=== PATIENT | female | born 1985 | race Caucasian/White ===

== ENCOUNTER 2019-04-01 17:32 | Emergency (ER) | payer MEDICARE, MEDICAID ==
--- NOTE | 2019-04-01 19:58 | NUR ---
PT LAYING IN GURNEY. STILL WONT ANSWER ANY QUESTIONS THAT WOULD MAYBE HELP WITH IDENTITY. AOX1
[2019-04-01 20:37] LABS: BASOPHILS # (AUTO) 0.18 x10^3/uL (0-0.1); BASOPHILS % (AUTO) 2 % (0-1); EOSINOPHILS # (AUTO) 0.16 x10^3/uL (0-0.4); EOSINOPHILS % (AUTO) 2 % (1-7); LYMPHOCYTES # (AUTO) 2.53 x10^3/uL (1-3.4); LYMPHOCYTES % (AUTO) 26 % (22-44); MD NO; MEAN CORPUSCULAR HEMOGLOBIN 28.6 pg (27.0-34.8); MEAN CORPUSCULAR HGB CONC 32.2 g/dL (32.4-35.8); MEAN CORPUSCULAR VOLUME 88.7 fL (80-100); MEAN PLATELET VOLUME 6.9 fL (7.4-10.4); MONOCYTES # (AUTO) 0.83 x10^3/uL (0.2-0.8); MONOCYTES % (AUTO) 8 % (2-9); NEUTROPHILS # (AUTO) 6.19 x10^3/uL (1.8-6.8); NEUTROPHILS % (AUTO) 63 % (42-75); PLATELET COUNT 331 x10^3/uL (130-400); RED BLOOD COUNT 4.84 x10^6/uL (3.82-5.3); RED CELL DISTRIBUTION WIDTH 13.9 % (9.6-15.2)
--- NOTE | 2019-04-01 20:40 | NUR ---
PT REFUSED TO GIVEN URINE SAMPLE OR BE CATHED
[2019-04-01 20:51] LABS: ALANINE AMINOTRANSFERASE 20 U/L (12-78); ALBUMIN 3.6 g/dL (3.4-5.0); ANION GAP 6 mmol/L (5-15); CALCIUM 8.4 mg/dL (8.5-10.1); CHLORIDE 111 mmol/L (98-107); CREATININE 0.62 mg/dL (0.55-1.02); SALICYLATE LEVEL 3.5 mg/dL (2.8-20.0)
[2019-04-01 20:55] LABS: ALKALINE PHOSPHATASE 89 U/L (45-117); BILIRUBIN,TOTAL 0.6 mg/dL (0.2-1.0); TOTAL PROTEIN 7.2 g/dL (6.4-8.2)
[2019-04-01 21:24] LABS: AMPHETAMINE SCREEN, URINE Positive (Negative); BARBITURATE SCREEN, URINE Negative (Negative); BENZODIAZEPINE SCREEN, URINE Negative (Negative); CANNABINOID SCREEN, URINE Negative (Negative); COCAINE SCREEN, URINE Negative (Negative); METHADONE SCREEN, URINE Negative (Negative); OPIATE SCREEN, URINE Negative (Negative)
--- NOTE | 2019-04-01 21:57 | NUR ---
LATE ENTRY: 1955 WHEN PT ORIGINALLY CAME IN SHE WAS AOX1. THE ONLY WORDS SHE WOULD MUMBLE WAS "DAI". THEREFORE, I HAVE BEEN CALLING HER DAI. I ASKED HER TO WRITE DOWN HER LAST NAME AND SHE WROTE "POOP". LATER SHE STARTED TALKING IN SENTENCES SHE TOLD ME I COULD MAKE UP HER BIRTHDAY DATE. IN THE DECON SHOWER I WAS PULLING CIGARETTE BUTTS OUT OF HER HAIR. WHEN SHE FIRST CAME IN SHE WAS WEARING ABOUT 10 JACKETS AND 10 PAIRS OF PANTS. WHEN WE PULLED OFF HER UNDERWEAR THEY WERE SATURATED IN URINE AND FECES.
[2019-04-01] MEDS ORDERED: AMOXICILLIN/CLAV 875-125MG TABLET PO ONE (22:00)
--- NOTE | 2019-04-01 22:02 | NUR ---
PT BELONGINGS HAVE BEEN PUT IN SECURITY LOCKER. 2 LARGE BLACK GARBAGE BAGS 3 WHITE PT BELONGING BAGS. ALL BAGS ARE LABELED WITH HER STICKER
--- NOTE | 2019-04-01 22:04 | NUR ---
REPORT GIVEN TO CLARISSA GARCIA
[2019-04-01] MEDS ORDERED: AMOXICILLIN/CLAV 875-125MG TABLET ONE (22:08)
--- NOTE | 2019-04-01 22:21 | NUR ---
PT GIVEN JUICE & SANDWICH & ABX. TOLERATED WELL. PT CALM & COOPERATIVE. WILL CTM.
--- NOTE | 2019-04-01 23:53 | NUR ---
REPORT RECEIVED FROM JOSE ROMO. PT RESTING ON GURNEY WITH EYES CLOSED, RESPIRATIONS EVEN AND NONLABORED. SITTER IN HALLWAY WITHIN LINE IF SIGHT, ROOM SECURED.
[2019-04-02] MEDS ORDERED: PLEASE ENTER WEIGHT MC SCH (01:00)
[2019-04-02] MEDS ORDERED: PLEASE ENTER ALLERGIES MC SCH (01:00)
--- NOTE | 2019-04-02 01:45 | NUR ---
referral faxed to [facility]
--- NOTE | 2019-04-02 01:53 | NUR ---
PT RESTING ON GURNEY WITH SITTER IN HALLWAY WITHIN LINE OF SIGHT. ROOM SECURED.
--- NOTE | 2019-04-02 02:03 | NUR ---
BEDSIDE REPORT FROM JOSE RAMOS. PT RESTING ON GURNEY, RESPIRATIONS EVEN AND UNLABORED. SITTER AT DOORWAY FOR FREQUENT CHECKS.
--- NOTE | 2019-04-02 03:00 | NUR ---
PT RESTING ON GURNEY, RESPIRATIONS EVEN AND UNLABORED. SITTER AT DOORWAY FOR FREQUENT CHECKS.
--- NOTE | 2019-04-02 04:00 | NUR ---
PT RESTING ON GURNEY, RESPIRATIONS EVEN AND UNLABORED. SITTER AT DOORWAY FOR FREQUENT CHECKS.
--- NOTE | 2019-04-02 07:00 | NUR ---
REPORT RECIEVED FROM NOC JOSE MON, PT CURRENLTY SLEEPING ON HOSPITAL BED, VISIBLE CHEST RISE AND FALL NOTED. SI PRECAUTIONS OBSERVED. PER NOC RN PT NOT COMPLIANT WITH PROVIDING UDS ORDERED YESTERDAY. WILL ATTEMPT TO COLLECT WHEN PT MORE ALERT AND COOPERATIVE
--- NOTE | 2019-04-02 09:18 | NUR ---
PT CONTINUES TO SLEEP ON GURNEY AT THIS TIME, PT NOT ANSWERING QUESTIONS OR PARTICIPATING IN ASSESSMENT AT THIS TIME. VSS. WILL CONTINUE TO MONITOR
--- NOTE | 2019-04-02 10:01 | NUR ---
Marie tran in [facility] - 04/02/19 at 1043 by DOMONIQUE REPORT TO AGUILAR GARCIA
--- NOTE | 2019-04-02 10:43 | NUR ---
PT NOW MORE AWAKE, EATING BREAKFAST MEAL TRAY. ONLY THING PT STATES IS WHEN ASKED HER NAME SHE SAY "ITS DAI"
--- NOTE | 2019-04-02 11:24 | NUR ---
PT RESTING ON GURNEY AT THIS TIME. PT DECLINES BEING MOVED TO HOSPITAL BED AT THIS TIME, GIVEN JUICE PER REQUEST.
[2019-04-02] MEDS ORDERED: HALOPERIDOL 5 MG TABLET PO ONE (12:30)
[2019-04-02] MEDS ORDERED: HALOPERIDOL 5 MG/ML IM ONE (12:30)
[2019-04-02] MEDS ORDERED: HALOPERIDOL 5 MG TABLET ONE (12:38)
[2019-04-02] MEDS ORDERED: AMOXICILLIN/CLAV 875-125MG TABLET ONE ×2 (12:38→22:14)
[2019-04-02] MEDS: AMOXICILLIN/CLAV 875-125MG TABLET PO SCH ×2 (12:42→23:00)
--- NOTE | 2019-04-02 12:43 | NUR ---
PSYCH SAFETY CLOTHING AND EQUIPMENT DEVELOPER IN TO EVAL PT, PT NOT COOPERATIVE WITH EVAL AT THIS TIME, CONTINUES TO MUMBLE AND MAKE MAKE INAPPROPRIATE COMMENTS. MEDICATIONS ORDERED, ADMINISTERED PER MAR
[2019-04-02] MEDS ORDERED: HALOPERIDOL 5 MG/ML ONE (14:55)
[2019-04-02] MEDS ORDERED: DIPHENHYDRAMINE 50 MG/ML, 1ML ONE (14:55)
[2019-04-02] MEDS ORDERED: LORazepam 2 MG/ML, 1ML ONE (14:56)
[2019-04-02] MEDS ORDERED: DIPHENHYDRAMINE 50 MG/ML, 1ML IM PRN ×2 (15:00→21:00)
[2019-04-02] MEDS ORDERED: LORazepam 2 MG/ML, 1ML IM PRN ×2 (15:00→21:00)
[2019-04-02] MEDS ORDERED: HALOPERIDOL 5 MG/ML IM PRN ×2 (15:00→21:00)
--- NOTE | 2019-04-02 15:05 | NUR ---
PT YELLING IN HALLS, SWEARING AND YELLING THREATS TO STAFF AND SITTER. PEANUT GRADER NOTIFIED, ADDITIONAL MEDICATION ORDERS RECIEVED. PT MEDICATED PER APR.
--- NOTE | 2019-04-02 16:24 | NUR ---
DINNER TRAY ORDERED. SI PRECAUTIONS OBSERVED, PT WITH NO NEEDS AT THIS TIME
--- NOTE | 2019-04-02 18:32 | NUR ---
PT SEDATED, VISIBLE CHEST RISE AND FALL NOTED AT THIS TIME. EKG COMPLETED POST CHECKER STOCKER. NAD NOTED
--- NOTE | 2019-04-02 18:45 | NUR ---
REPORT TO AGUILAR GARCIA
--- NOTE | 2019-04-02 18:47 | NUR ---
REPORT RECEIVED FROM JOSE HANCOCK. ASSUMED CARE. SPRITE AND WATER PROVIDED
--- NOTE | 2019-04-02 19:08 | NUR ---
BULL from [facility] called pt will be accepted next week according to dc. faxed an updated packet on pt
--- NOTE | 2019-04-02 20:00 | NUR ---
LATE ENTRY 1999: TOOK A SET VITAL SIGNS. OFFERED PT WATER. NO NEEDS AT THIS TIME
--- NOTE | 2019-04-02 22:06 | NUR ---
REPORT GIVEN TO JOSE KANG.
--- NOTE | 2019-04-02 22:10 | NUR ---
REPORT RECEIVED AND CARE ASSUMED. PT SLEEPING WITH RESP EVEN AND UNLABORED.
--- NOTE | 2019-04-02 23:06 | NUR ---
Pt repositioning self in bed. VSS. Attempting to medicate pt--pt too drowsy at this time. Will medicate when pt more awake. Sitter in place for obs.
--- NOTE | 2019-04-02 23:59 | NUR ---
PT SLEEPING WITH RESP EVEN AND UNLABORED. REPOSITIONS SELF PRN. SITTER IN PLACE FOR OBS.
--- NOTE | 2019-04-03 01:00 | NUR ---
NO ACUTE CHANGES. PT SLEEPING. SITTER IN PLACE.
--- NOTE | 2019-04-03 03:10 | NUR ---
PT SLEEPING WITH RESP EVEN AND UNLABORED. NO ACUTE CHANGES NOTED. SITTER IN PLACE FOR OBS.
--- NOTE | 2019-04-03 04:23 | NUR ---
report from kelly delacruz
--- NOTE | 2019-04-03 04:24 | NUR ---
PT SLEEPING WITH RESP EVEN AND UNLABORED, SITTER IN PLACE FOR OBS
--- NOTE | 2019-04-03 04:25 | NUR ---
PT SLEEPING WITH NO ACUTE CHANGES. SITTER IN PLACE FOR OBS. REPORT TO ANGELICA GARCIA.
--- NOTE | 2019-04-03 06:14 | NUR ---
meal tray ordered
--- NOTE | 2019-04-03 06:55 | NUR ---
report received from geeg mendoza.
[2019-04-03] MEDS ORDERED: AMOXICILLIN/CLAV 875-125MG TABLET ONE (07:45)
--- NOTE | 2019-04-03 08:07 | NUR ---
pt sleeping. resps even and unlabored. room secure. sitter monitoring from hallway for safety.
--- NOTE | 2019-04-03 08:09 | NUR ---
meal tray in room at this time.
--- NOTE | 2019-04-03 08:43 | NUR ---
pt amb to br with steady gait.
--- NOTE | 2019-04-03 08:54 | NUR ---
report given to ernie mendoza.
[2019-04-03] MEDS: AMOXICILLIN/CLAV 875-125MG TABLET PO SCH (09:00)
--- NOTE | 2019-04-03 09:01 | NUR ---
REPORT RECEIVED FROM STACY GARCIA SITTER IN PLACE.
--- NOTE | 2019-04-03 09:38 | NUR ---
abx per apr. checked 6 rights. (cellulitis on back). pt walked around ED. compliant/cooperative. sit in place. as
--- NOTE | 2019-04-03 09:50 | NUR ---
report to dillon mendoza and sabas mendoza. as
--- NOTE | 2019-04-03 09:55 | NUR ---
REPORT RECEIVED FROM JOSE DOS SANTOS. ASSUMED CARE
[2019-04-03 10:35] VITALS: BP 101/64
--- NOTE | 2019-04-03 10:35 | NUR ---
VITALS TAKEN. PT RESTING IN [facility]. 1 TO 1 SITTER OUTSIDE SECURED ROOM. NO NEEDS AT THIS TIME
--- NOTE | 2019-04-03 11:44 | NUR ---
TOOK PT FOR A WALK AROUND THE UNIT.
== END 2019-04-03 14:13 | disposition home or self-care (01) ==
LOC: MERGE 04-02 00:33 → ED 04-02 00:33 → EDBD 04-02 00:33 → ED 04-03 14:13
DX: F29 Unspecified psychosis not due to a substance or known physiological condition (principal); L03.313 Cellulitis of chest wall; L03.312 Cellulitis of back [any part except buttock and flank]; F15.159 Other stimulant abuse with stimulant-induced psychotic disorder, unspecified; R94.01 Abnormal electroencephalogram [EEG]
CPT/HCPCS: 36415; 80053; 80307; 84703; 85025; 93005; 96372; 99285; J1200; J1630; J2060

== ENCOUNTER 2020-09-22 22:13 | Inpatient (IN) | payer MEDICARE, MEDICAID ==
[~2020-09-22] VITALS: Ht 172.7 cm; Wt 67.2 kg
--- NOTE | 2020-09-22 22:13 | NUR ---
PATIENT PRESENTED TO ER WITH AMS AND HAVING TAPE ENSTRANGULATING VARIOUS PARTS OF HER BODY, MOST NOTABLY HER RIGHT WRIST AND FINGERS. DR. HERNANDEZ IMMEDIATELY NOTIFIED AND PATIENT WAS MOVED TO TRAUMA ROOM 2 FOR EMERGENT PROCEDURAL SEDATION FOR TAPE REMOVAL OF THE RIGHT ARM, WRIST, AND FINGERS.
[2020-09-22] MEDS ORDERED: KETAMINE 10 MG/ML, 20ML ONE ×2 (22:17→22:41)
[2020-09-22] MEDS ORDERED: KETAMINE 100 MG/ML, 5ML IM ONE (22:30)
[2020-09-22] MEDS ORDERED: SODIUM CHLORIDE 0.9% 1,000ML IVBOLUS ONE (22:30)
[2020-09-22] MEDS ORDERED: PIPERACILLIN/TAZO 3.375 GM in DEXTROSE 5% 50 ML IVPB ONE (23:00)
[2020-09-22] MEDS ORDERED: VANCOMYCIN PER PHARMACY MC PRN (23:00)
[2020-09-22 23:11] LABS: BASOPHILS % (AUTO) 1 % (0-1); EOSINOPHILS % (AUTO) 2 % (1-7); LYMPHOCYTES % (AUTO) 18 % (22-44); MEAN CORPUSCULAR HEMOGLOBIN 27.6 pg (27.0-34.8); MEAN PLATELET VOLUME 6.5 fL (7.4-10.4); MONOCYTES % (AUTO) 8 % (2-9); NEUTROPHILS % (AUTO) 72 % (42-75); PLATELET COUNT 477 x10^3/uL (130-400); RED BLOOD COUNT 4.08 x10^6/uL (3.82-5.3); RED CELL DISTRIBUTION WIDTH 14.2 % (9.6-15.2)
[2020-09-22 23:20] LABS: ALANINE AMINOTRANSFERASE 20 U/L (12-78); ALBUMIN 2.9 g/dL (3.4-5.0); ANION GAP 6 mmol/L (5-15); CALCIUM 8.9 mg/dL (8.5-10.1); CHLORIDE 107 mmol/L (98-107); CREATININE 0.47 mg/dL (0.55-1.02); SALICYLATE LEVEL 4.7 mg/dL (2.8-20.0)
[2020-09-22 23:22] LABS: ALKALINE PHOSPHATASE 115 U/L (45-117); BILIRUBIN,TOTAL 0.2 mg/dL (0.2-1.0); TOTAL PROTEIN 7.8 g/dL (6.4-8.2)
[2020-09-22] MEDS: PLEASE ENTER ALLERGIES MC SCH (23:30)
[2020-09-22] MEDS ORDERED: DIPH,PERTUSS(ACELL),TET VAC/PF 0.5 ML IM-VACC ONE (23:30)
[2020-09-22] MEDS ORDERED: VANCOMYCIN 1,800 MG in SODIUM CHLORIDE 0.9% 250 ML IV ONE (23:45)
--- NOTE | 2020-09-22 23:53 | NUR ---
ketamine for conscious sedation administered by Dr. Kline
[2020-09-23] MEDS ORDERED: KETAMINE 100 MG/ML, 5ML IV ONE (00:30)
[2020-09-23] MEDS ORDERED: KETAMINE 10 MG/ML, 20ML IV ONE (00:30)
[2020-09-23] MEDS ORDERED: OMNIPAQUE 350 MG/ML, 100ML BOTTLE ONE (00:30)
[2020-09-23] MEDS ORDERED: DIPH,PERTUSS(ACELL),TET VAC/PF 0.5 ML IM-VACC ONE (00:32)
[2020-09-23] MEDS ORDERED: morphine SULFATE 10 MG/ML, 1ML IVPush PRN (03:00)
[2020-09-23] MEDS ORDERED: LORazepam 2 MG/ML, 1ML IVPush PRN (03:00)
[2020-09-23] MEDS: PLEASE ENTER ALLERGIES MC SCH ×3 (03:00→04:17)
[2020-09-23] MEDS ORDERED: VANCOMYCIN PER PHARMACY MC PRN (03:00)
[2020-09-23] MEDS ORDERED: BISACODYL 10 MG SUPP PR PRN (03:00)
[2020-09-23] MEDS ORDERED: PLEASE ENTER ALLERGIES MC SCH ×2 (05:00→05:30)
[2020-09-23] MEDS ORDERED: PHARMACOKINETIC MONITORING MC PRN (06:00)
[2020-09-23] MEDS ORDERED: PHARMACOKINETIC CONSULTATION MC ONE (06:00)
[2020-09-23] MEDS: PIPERACILLIN/TAZO 3.375 GM in DEXTROSE 5% 50 ML IV SCH ×3 (06:02→18:48)
[2020-09-23 07:11] LABS: BASOPHILS % (AUTO) 0 % (0-1); EOSINOPHILS % (AUTO) 1 % (1-7); LYMPHOCYTES % (AUTO) 13 % (22-44); MEAN CORPUSCULAR HEMOGLOBIN 27.1 pg (27.0-34.8); MEAN CORPUSCULAR HGB CONC 32.1 g/dL (32.4-35.8); MEAN PLATELET VOLUME 6.5 fL (7.4-10.4); MONOCYTES % (AUTO) 6 % (2-9); NEUTROPHILS % (AUTO) 79 % (42-75); PLATELET COUNT 447 x10^3/uL (130-400); RED BLOOD COUNT 4.29 x10^6/uL (3.82-5.3); RED CELL DISTRIBUTION WIDTH 14.3 % (9.6-15.2)
[2020-09-23 07:16] LABS: ANION GAP 5 mmol/L (5-15); CALCIUM 8.6 mg/dL (8.5-10.1); CHLORIDE 108 mmol/L (98-107); CREATININE 0.35 mg/dL (0.55-1.02)
[2020-09-23 07:54] VITALS: BP 133/81
[2020-09-23] MEDS ORDERED: MORPHINE SULFATE 4 MG/ML, 1ML IVPush PRN (09:00)
[2020-09-23] MEDS ORDERED: KETOROLAC 30 MG/1 ML IVPush PRN (09:00)
[2020-09-23 09:27] LABS: CREATINE KINASE, TOTAL 55 U/L (26-192)
[2020-09-23 12:21] LABS: AMPHETAMINE SCREEN, URINE Positive (Negative); BARBITURATE SCREEN, URINE Negative (Negative); BENZODIAZEPINE SCREEN, URINE Negative (Negative); CANNABINOID SCREEN, URINE Negative (Negative); COCAINE SCREEN, URINE Negative (Negative); METHADONE SCREEN, URINE Negative (Negative); OPIATE SCREEN, URINE Negative (Negative)
[2020-09-23 12:39] VITALS: BP 128/78
[2020-09-23] MEDS: VANCOMYCIN 1,100 MG in SODIUM CHLORIDE 0.9% 250 ML IV SCH (17:20)
[2020-09-24] MEDS: PIPERACILLIN/TAZO 3.375 GM in DEXTROSE 5% 50 ML IV SCH ×5 (00:12→23:30)
[2020-09-24] MEDS: VANCOMYCIN 1,100 MG in SODIUM CHLORIDE 0.9% 250 ML IV SCH ×2 (00:30→08:43)
[2020-09-24 00:48] VITALS: BP 122/74
[2020-09-24 06:33] LABS: BASOPHILS % (AUTO) 1 % (0-1); EOSINOPHILS % (AUTO) 4 % (1-7); LYMPHOCYTES % (AUTO) 24 % (22-44); MEAN CORPUSCULAR HEMOGLOBIN 27.6 pg (27.0-34.8); MEAN PLATELET VOLUME 6.6 fL (7.4-10.4); MONOCYTES % (AUTO) 9 % (2-9); NEUTROPHILS % (AUTO) 62 % (42-75); PLATELET COUNT 410 x10^3/uL (130-400); RED BLOOD COUNT 3.96 x10^6/uL (3.82-5.3); RED CELL DISTRIBUTION WIDTH 14.5 % (9.6-15.2)
[2020-09-24 07:53] VITALS: BP 126/75
[2020-09-24] MEDS: ENOXAPARIN 40 MG/0.4 ML SQ SCH (08:43)
[2020-09-24 14:44] VITALS: BP 134/82
[2020-09-24] MEDS: VANCOMYCIN 1,300 MG in SODIUM CHLORIDE 0.9% 250 ML IV SCH (17:48)
[2020-09-24 19:24] VITALS: BP 99/54
[2020-09-25] MEDS: VANCOMYCIN 1,300 MG in SODIUM CHLORIDE 0.9% 250 ML IV SCH ×3 (00:34→16:51)
[2020-09-25 02:15] VITALS: BP 114/71
[2020-09-25] MEDS: PIPERACILLIN/TAZO 3.375 GM in DEXTROSE 5% 50 ML IV SCH ×4 (05:57→23:49)
[2020-09-25 08:00] VITALS: BP 107/67
[2020-09-25] MEDS: OLANZAPINE 10 MG TABLET PO SCH (08:40)
[2020-09-25] MEDS: ENOXAPARIN 40 MG/0.4 ML SQ SCH (08:40)
[2020-09-25 15:16] VITALS: BP 118/67
[2020-09-26] MEDS: ACETAMINOPHEN 325 MG TABLET PO PRN ×2 (00:04→17:14)
[2020-09-26 01:06] VITALS: BP 121/64
[2020-09-26] MEDS: VANCOMYCIN 1,300 MG in SODIUM CHLORIDE 0.9% 250 ML IV SCH ×3 (01:47→17:11)
[2020-09-26] MEDS: PIPERACILLIN/TAZO 3.375 GM in DEXTROSE 5% 50 ML IV SCH ×3 (06:07→18:40)
[2020-09-26 06:11] VITALS: BP 128/76
[2020-09-26] MEDS: ENOXAPARIN 40 MG/0.4 ML SQ SCH (09:00)
[2020-09-26] MEDS: OLANZAPINE 10 MG TABLET PO SCH (09:00)
[2020-09-26 14:08] VITALS: BP 101/62
[2020-09-26 18:16] VITALS: BP 109/68
[2020-09-27] VITALS: BP 100/60
[2020-09-27] MEDS: PIPERACILLIN/TAZO 3.375 GM in DEXTROSE 5% 50 ML IV SCH ×4 (00:23→18:00)
[2020-09-27] MEDS: VANCOMYCIN 1,300 MG in SODIUM CHLORIDE 0.9% 250 ML IV SCH ×3 (01:17→16:53)
[2020-09-27 07:18] VITALS: BP 109/69
[2020-09-27] MEDS: ENOXAPARIN 40 MG/0.4 ML SQ SCH (08:59)
[2020-09-27] MEDS: OLANZAPINE 10 MG TABLET PO SCH (08:59)
[2020-09-27 12:08] VITALS: BP 118/81
[2020-09-27] MEDS: ACETAMINOPHEN 325 MG TABLET PO PRN (17:37)
[2020-09-27 19:26] VITALS: BP 113/71
[2020-09-28] MEDS: PIPERACILLIN/TAZO 3.375 GM in DEXTROSE 5% 50 ML IV SCH ×4 (00:16→21:45)
[2020-09-28 00:25] VITALS: BP 113/65
[2020-09-28] MEDS: VANCOMYCIN 1,300 MG in SODIUM CHLORIDE 0.9% 250 ML IV SCH ×3 (01:19→19:25)
[2020-09-28 02:00] LABS: VANCOMYCIN,TROUGH 17.4 mcg/mL (5.0-10.0)
[2020-09-28 04:46] LABS: ALANINE AMINOTRANSFERASE 19 U/L (12-78); ALBUMIN 2.7 g/dL (3.4-5.0); ANION GAP 5 mmol/L (5-15); CALCIUM 8.9 mg/dL (8.5-10.1); CHLORIDE 107 mmol/L (98-107); CREATININE 0.53 mg/dL (0.55-1.02)
[2020-09-28 04:48] LABS: ALKALINE PHOSPHATASE 87 U/L (45-117); BILIRUBIN,TOTAL 0.2 mg/dL (0.2-1.0); TOTAL PROTEIN 7.3 g/dL (6.4-8.2)
[2020-09-28 04:52] LABS: BASOPHILS % (AUTO) 1 % (0-1); EOSINOPHILS % (AUTO) 3 % (1-7); LYMPHOCYTES % (AUTO) 20 % (22-44); MEAN CORPUSCULAR HEMOGLOBIN 27.7 pg (27.0-34.8); MEAN CORPUSCULAR HGB CONC 33.2 g/dL (32.4-35.8); MEAN PLATELET VOLUME 6.4 fL (7.4-10.4); MONOCYTES % (AUTO) 9 % (2-9); NEUTROPHILS % (AUTO) 68 % (42-75); PLATELET COUNT 444 x10^3/uL (130-400); RED BLOOD COUNT 4.32 x10^6/uL (3.82-5.3); RED CELL DISTRIBUTION WIDTH 14.2 % (9.6-15.2)
[2020-09-28] MEDS: ACETAMINOPHEN 325 MG TABLET PO PRN ×2 (09:02→15:13)
[2020-09-28] MEDS: ENOXAPARIN 40 MG/0.4 ML SQ SCH (09:59)
[2020-09-28] MEDS: OLANZAPINE 10 MG TABLET PO SCH (10:00)
[2020-09-28 11:10] VITALS: BP 119/74
[2020-09-28 15:34] VITALS: BP 117/74
[2020-09-28 19:14] VITALS: BP 123/74
[2020-09-29 00:30] VITALS: BP 105/63
[2020-09-29] MEDS: PIPERACILLIN/TAZO 3.375 GM in DEXTROSE 5% 50 ML IV SCH (02:58)
[2020-09-29] MEDS: VANCOMYCIN 1,300 MG in SODIUM CHLORIDE 0.9% 250 ML IV SCH ×3 (03:42→19:28)
[2020-09-29 07:15] VITALS: BP 100/57
[2020-09-29] MEDS: ENOXAPARIN 40 MG/0.4 ML SQ SCH (10:37)
[2020-09-29] MEDS: OLANZAPINE 10 MG TABLET PO SCH (10:38)
[2020-09-29] MEDS: SILVER SULF. CRM 1% , 25GM TP SCH (11:42)
[2020-09-29 12:38] VITALS: BP 108/65
[2020-09-29 20:58] VITALS: BP 112/60
[2020-09-30 01:07] VITALS: BP 113/64
[2020-09-30] MEDS: VANCOMYCIN 1,300 MG in SODIUM CHLORIDE 0.9% 250 ML IV SCH ×3 (02:45→19:27)
[2020-09-30 04:30] LABS: BASOPHILS % (AUTO) 1 % (0-1); EOSINOPHILS % (AUTO) 2 % (1-7); LYMPHOCYTES % (AUTO) 21 % (22-44); MEAN CORPUSCULAR HEMOGLOBIN 26.8 pg (27.0-34.8); MEAN PLATELET VOLUME 6.5 fL (7.4-10.4); MONOCYTES % (AUTO) 8 % (2-9); NEUTROPHILS % (AUTO) 68 % (42-75); PLATELET COUNT 416 x10^3/uL (130-400); RED BLOOD COUNT 4.15 x10^6/uL (3.82-5.3); RED CELL DISTRIBUTION WIDTH 14.1 % (9.6-15.2)
[2020-09-30 04:41] LABS: ANION GAP 7 mmol/L (5-15); CALCIUM 8.8 mg/dL (8.5-10.1); CHLORIDE 105 mmol/L (98-107)
[2020-09-30 04:43] LABS: CREATININE 0.49 mg/dL (0.55-1.02)
[2020-09-30 06:47] VITALS: BP 119/69
[2020-09-30] MEDS: ENOXAPARIN 40 MG/0.4 ML SQ SCH (08:31)
[2020-09-30] MEDS: OLANZAPINE 10 MG TABLET PO SCH (08:31)
[2020-09-30] MEDS: SILVER SULF. CRM 1% , 25GM TP SCH ×2 (08:31→08:36)
[2020-09-30 12:49] VITALS: BP 115/62
[2020-09-30] MEDS: ACETAMINOPHEN 325 MG TABLET PO PRN (17:05)
[2020-10-01 02:20] VITALS: BP 107/63
[2020-10-01] MEDS: VANCOMYCIN 1,300 MG in SODIUM CHLORIDE 0.9% 250 ML IV SCH ×3 (02:32→20:09)
[2020-10-01 04:25] LABS: BASOPHILS % (AUTO) 1 % (0-1); EOSINOPHILS % (AUTO) 2 % (1-7); LYMPHOCYTES % (AUTO) 24 % (22-44); MEAN CORPUSCULAR HEMOGLOBIN 27.3 pg (27.0-34.8); MEAN CORPUSCULAR HGB CONC 32.5 g/dL (32.4-35.8); MEAN PLATELET VOLUME 6.6 fL (7.4-10.4); MONOCYTES % (AUTO) 11 % (2-9); NEUTROPHILS % (AUTO) 62 % (42-75); PLATELET COUNT 407 x10^3/uL (130-400); RED BLOOD COUNT 4.16 x10^6/uL (3.82-5.3); RED CELL DISTRIBUTION WIDTH 13.9 % (9.6-15.2)
[2020-10-01 04:30] LABS: HCT (SEDRATE) 34.9 % (34.6-47.8)
[2020-10-01 04:33] LABS: ANION GAP 6 mmol/L (5-15); CALCIUM 8.5 mg/dL (8.5-10.1); CHLORIDE 107 mmol/L (98-107)
[2020-10-01 04:40] LABS: CREATININE 0.38 mg/dL (0.55-1.02)
[2020-10-01 07:18] VITALS: BP 114/64
[2020-10-01] MEDS: OLANZAPINE 10 MG TABLET PO SCH (10:13)
[2020-10-01] MEDS: ENOXAPARIN 40 MG/0.4 ML SQ SCH (10:13)
[2020-10-01] MEDS: SILVER SULF. CRM 1% , 25GM TP SCH (10:14)
[2020-10-01] MEDS: ACETAMINOPHEN 325 MG TABLET PO PRN (13:30)
[2020-10-01 15:59] VITALS: BP 107/57
[2020-10-01 19:11] VITALS: BP 100/58
[2020-10-02 01:51] VITALS: BP_SYST 126; BP_SYST 96; BP_DIAS 57; BP_DIAS 87
[2020-10-02] MEDS: VANCOMYCIN 1,300 MG in SODIUM CHLORIDE 0.9% 250 ML IV SCH ×2 (04:42→13:43)
[2020-10-02 07:06] LABS: BASOPHILS % (AUTO) 1 % (0-1); EOSINOPHILS % (AUTO) 3 % (1-7); LYMPHOCYTES % (AUTO) 23 % (22-44); MEAN CORPUSCULAR HEMOGLOBIN 27.1 pg (27.0-34.8); MEAN CORPUSCULAR HGB CONC 32.4 g/dL (32.4-35.8); MEAN PLATELET VOLUME 6.6 fL (7.4-10.4); MONOCYTES % (AUTO) 10 % (2-9); NEUTROPHILS % (AUTO) 64 % (42-75); PLATELET COUNT 419 x10^3/uL (130-400); RED BLOOD COUNT 4.31 x10^6/uL (3.82-5.3); RED CELL DISTRIBUTION WIDTH 14.3 % (9.6-15.2)
[2020-10-02 07:10] VITALS: BP 111/68
[2020-10-02 07:10] LABS: ANION GAP 8 mmol/L (5-15); CALCIUM 9.3 mg/dL (8.5-10.1); CHLORIDE 105 mmol/L (98-107)
[2020-10-02 07:11] LABS: CREATININE 0.34 mg/dL (0.55-1.02)
[2020-10-02] MEDS: SILVER SULF. CRM 1% , 25GM TP SCH (10:29)
[2020-10-02] MEDS: OLANZAPINE 10 MG TABLET PO SCH (10:29)
[2020-10-02] MEDS: ENOXAPARIN 40 MG/0.4 ML SQ SCH (10:31)
[2020-10-02 14:10] VITALS: BP 113/71
[2020-10-02] MEDS ORDERED: OMNIPAQUE 350 MG/ML, 100ML BOTTLE ONE (17:58)
[2020-10-02 18:41] VITALS: BP 119/76
[2020-10-02] MEDS: VANCOMYCIN 1,100 MG in SODIUM CHLORIDE 0.9% 250 ML IV SCH (20:01)
[2020-10-03] MEDS: VANCOMYCIN 1,100 MG in SODIUM CHLORIDE 0.9% 250 ML IV SCH ×4 (02:09→23:39)
[2020-10-03 02:11] VITALS: BP 109/55
[2020-10-03 06:16] LABS: BASOPHILS % (AUTO) 0 % (0-1); EOSINOPHILS % (AUTO) 3 % (1-7); LYMPHOCYTES % (AUTO) 23 % (22-44); MEAN CORPUSCULAR HEMOGLOBIN 27.1 pg (27.0-34.8); MEAN CORPUSCULAR HGB CONC 32.6 g/dL (32.4-35.8); MEAN PLATELET VOLUME 6.5 fL (7.4-10.4); MONOCYTES % (AUTO) 10 % (2-9); NEUTROPHILS % (AUTO) 64 % (42-75); PLATELET COUNT 423 x10^3/uL (130-400); RED BLOOD COUNT 4.25 x10^6/uL (3.82-5.3); RED CELL DISTRIBUTION WIDTH 14.7 % (9.6-15.2)
[2020-10-03 06:28] LABS: CHLORIDE 107 mmol/L (98-107)
[2020-10-03 06:34] LABS: ALANINE AMINOTRANSFERASE 36 U/L (12-78); ALBUMIN 2.9 g/dL (3.4-5.0); ALKALINE PHOSPHATASE 94 U/L (45-117); ANION GAP 6 mmol/L (5-15); BILIRUBIN,TOTAL 0.4 mg/dL (0.2-1.0); CALCIUM 9.1 mg/dL (8.5-10.1); CREATININE 0.36 mg/dL (0.55-1.02); TOTAL PROTEIN 7.3 g/dL (6.4-8.2)
[2020-10-03 06:47] VITALS: BP 107/69
[2020-10-03] MEDS: OLANZAPINE 10 MG TABLET PO SCH (09:17)
[2020-10-03] MEDS: ENOXAPARIN 40 MG/0.4 ML SQ SCH (09:17)
[2020-10-03] MEDS: SILVER SULF. CRM 1% , 25GM TP SCH (09:18)
[2020-10-03 13:03] VITALS: BP 107/62
[2020-10-03 18:58] VITALS: BP 108/79
[2020-10-04 01:04] VITALS: BP 118/76
[2020-10-04] MEDS: VANCOMYCIN 1,100 MG in SODIUM CHLORIDE 0.9% 250 ML IV SCH ×4 (05:14→23:07)
[2020-10-04 08:13] VITALS: BP 108/62
[2020-10-04] MEDS: OLANZAPINE 10 MG TABLET PO SCH (08:50)
[2020-10-04] MEDS: ENOXAPARIN 40 MG/0.4 ML SQ SCH (08:50)
[2020-10-04] MEDS: SILVER SULF. CRM 1% , 25GM TP SCH (12:16)
[2020-10-04 14:22] VITALS: BP 120/74
[2020-10-04] MEDS: ACETAMINOPHEN 325 MG TABLET PO PRN (15:28)
[2020-10-04 19:00] VITALS: BP 110/68
[2020-10-05 00:28] VITALS: BP 102/59
[2020-10-05 06:29] LABS: BASOPHILS % (AUTO) 1 % (0-1); EOSINOPHILS % (AUTO) 2 % (1-7); LYMPHOCYTES % (AUTO) 26 % (22-44); MEAN CORPUSCULAR HEMOGLOBIN 27.2 pg (27.0-34.8); MEAN CORPUSCULAR HGB CONC 32.3 g/dL (32.4-35.8); MONOCYTES % (AUTO) 9 % (2-9); NEUTROPHILS % (AUTO) 62 % (42-75); PLATELET COUNT 372 x10^3/uL (130-400); RED BLOOD COUNT 4.24 x10^6/uL (3.82-5.3); RED CELL DISTRIBUTION WIDTH 14.7 % (9.6-15.2)
[2020-10-05 06:39] LABS: ALBUMIN 2.6 g/dL (3.4-5.0); ANION GAP 5 mmol/L (5-15); CALCIUM 8.5 mg/dL (8.5-10.1); CHLORIDE 107 mmol/L (98-107)
[2020-10-05 06:43] LABS: ALANINE AMINOTRANSFERASE 54 U/L (12-78); ALKALINE PHOSPHATASE 90 U/L (45-117); BILIRUBIN,TOTAL 0.4 mg/dL (0.2-1.0); CREATININE 0.43 mg/dL (0.55-1.02); TOTAL PROTEIN 6.8 g/dL (6.4-8.2); VANCOMYCIN,TROUGH 18.1 mcg/mL (5.0-10.0)
[2020-10-05] MEDS: VANCOMYCIN 1,100 MG in SODIUM CHLORIDE 0.9% 250 ML IV SCH ×4 (06:50→23:25)
[2020-10-05 07:25] VITALS: BP 102/60
[2020-10-05] MEDS: ACETAMINOPHEN 325 MG TABLET PO PRN (09:21)
[2020-10-05] MEDS: SILVER SULF. CRM 1% , 25GM TP SCH (09:21)
[2020-10-05] MEDS: OLANZAPINE 10 MG TABLET PO SCH (09:21)
[2020-10-05] MEDS: ENOXAPARIN 30 MG/0.3 ML SQ SCH (09:21)
[2020-10-05 12:04] VITALS: BP 99/59
[2020-10-05 18:56] VITALS: BP 113/68
[2020-10-05 20:33] VITALS: BP 108/67
[2020-10-06 02:00] VITALS: BP 106/63
[2020-10-06] MEDS: VANCOMYCIN 1,100 MG in SODIUM CHLORIDE 0.9% 250 ML IV SCH ×4 (05:42→23:00)
[2020-10-06 09:41] VITALS: BP 109/68
[2020-10-06] MEDS: OLANZAPINE 10 MG TABLET PO SCH (09:46)
[2020-10-06] MEDS: ENOXAPARIN 30 MG/0.3 ML SQ SCH (09:46)
[2020-10-06] MEDS: SILVER SULF. CRM 1% , 25GM TP SCH (09:46)
[2020-10-06] MEDS: CEFTRIAXONE 2 GM in DEXTROSE 5% 50 ML IVPB SCH (09:59)
[2020-10-06] MEDS: ACETAMINOPHEN 325 MG TABLET PO PRN ×2 (09:59→20:33)
[2020-10-06] MEDS: NICOTINE GUM 2 MG BC SCH ×6 (11:02→19:35)
[2020-10-06] MEDS: NICOTINE 14MG/24 HR PATCH.TD24 TD SCH (11:02)
[2020-10-06 12:35] VITALS: BP 109/62
[2020-10-06 18:38] VITALS: BP 106/62
[2020-10-06] MEDS ORDERED: NICOTINE GUM 2 MG BC PRN (22:00)
[2020-10-07 01:24] VITALS: BP 104/58
[2020-10-07] MEDS: VANCOMYCIN 1,100 MG in SODIUM CHLORIDE 0.9% 250 ML IV SCH ×4 (04:58→23:25)
[2020-10-07 06:47] VITALS: BP 112/62
[2020-10-07] MEDS: CEFTRIAXONE 2 GM in DEXTROSE 5% 50 ML IVPB SCH (09:43)
[2020-10-07] MEDS: OLANZAPINE 10 MG TABLET PO SCH (09:43)
[2020-10-07] MEDS: NICOTINE 14MG/24 HR PATCH.TD24 TD SCH (09:44)
[2020-10-07] MEDS: SILVER SULF. CRM 1% , 25GM TP SCH (09:44)
[2020-10-07] MEDS: ENOXAPARIN 30 MG/0.3 ML SQ SCH (09:45)
[2020-10-07 12:03] VITALS: BP 106/65
[2020-10-07 18:34] VITALS: BP 115/74
[2020-10-07] MEDS: ACETAMINOPHEN 325 MG TABLET PO PRN (20:32)
[2020-10-08 02:02] VITALS: BP 106/60
[2020-10-08 05:06] LABS: CREATININE 0.31 mg/dL (0.55-1.02)
[2020-10-08] MEDS: VANCOMYCIN 1,100 MG in SODIUM CHLORIDE 0.9% 250 ML IV SCH ×4 (06:08→22:29)
[2020-10-08 06:52] VITALS: BP 106/66
[2020-10-08] MEDS: SILVER SULF. CRM 1% , 25GM TP SCH (10:37)
[2020-10-08] MEDS: CEFTRIAXONE 2 GM in DEXTROSE 5% 50 ML IVPB SCH (10:37)
[2020-10-08] MEDS: NICOTINE 14MG/24 HR PATCH.TD24 TD SCH (10:37)
[2020-10-08] MEDS: OLANZAPINE 10 MG TABLET PO SCH (10:37)
[2020-10-08] MEDS: ENOXAPARIN 30 MG/0.3 ML SQ SCH (12:09)
[2020-10-08 13:01] VITALS: BP 107/70
[2020-10-08] MEDS ORDERED: PROPOFOL 50 ML ONE (13:49)
[2020-10-08] MEDS ORDERED: FENTANYL PF 250 MCG/5ML ONE (13:49)
[2020-10-08] MEDS ORDERED: MIDAZOLAM 1 MG/ML, 2ML ONE (13:49)
[2020-10-08] MEDS ORDERED: PROPOFOL 10 MG/ML, 20ML ONE (13:51)
[2020-10-08] MEDS ORDERED: BUPIVACAINE/PF 0.5% ONE (13:56)
[2020-10-08] MEDS ORDERED: ONDANSETRON 2MG/ML, 2ML ONE (14:20)
[2020-10-08] MEDS ORDERED: BUPIVACAINE/PF 0.5% INFIL ONE (14:25)
[2020-10-08] MEDS ORDERED: OXYcodone 5 MG/5 ML ORAL.SOL UDC PO PRN (14:30)
[2020-10-08] MEDS ORDERED: FENTANYL PF 100 MCG/2ML IV PRN (14:30)
[2020-10-08] MEDS ORDERED: LABETALOL 5MG/ML, 20ML IV PRN (14:30)
[2020-10-08] MEDS ORDERED: EPHEDRINE 50 MG/ML, 1ML IVPush PRN (14:30)
[2020-10-08] MEDS ORDERED: EPHEDRINE 50 MG/ML, 1ML IM PRN (14:30)
[2020-10-08] MEDS ORDERED: MEPERIDINE/PF 25MG/0.5ML IVPush PRN (14:30)
[2020-10-08] MEDS ORDERED: DIPHENHYDRAMINE 50 MG/ML, 1ML IVPush PRN (14:30)
[2020-10-08] MEDS ORDERED: morphine SULFATE 10 MG/ML, 1ML IVPush PRN (14:30)
[2020-10-08] MEDS ORDERED: ACETAMINOPHEN 650 MG/20.3 ML UDC ONE (15:18)
[2020-10-08] MEDS: ACETAMINOPHEN 325 MG TABLET PO PRN (15:20)
[2020-10-08] MEDS: ENOXAPARIN 40 MG/0.4 ML SQ SCH (16:41)
[2020-10-08 18:36] VITALS: BP 112/74
[2020-10-09 01:35] VITALS: BP 108/67
[2020-10-09] MEDS: VANCOMYCIN 1,100 MG in SODIUM CHLORIDE 0.9% 250 ML IV SCH (05:30)
[2020-10-09 07:14] VITALS: BP 102/63
[2020-10-09 08:48] LABS: BASOPHILS % (AUTO) 1 % (0-1); EOSINOPHILS % (AUTO) 2 % (1-7); LYMPHOCYTES % (AUTO) 17 % (22-44); MEAN CORPUSCULAR HEMOGLOBIN 27.2 pg (27.0-34.8); MEAN CORPUSCULAR HGB CONC 32.5 g/dL (32.4-35.8); MEAN PLATELET VOLUME 6.5 fL (7.4-10.4); MONOCYTES % (AUTO) 10 % (2-9); NEUTROPHILS % (AUTO) 70 % (42-75); PLATELET COUNT 440 x10^3/uL (130-400); RED BLOOD COUNT 4.05 x10^6/uL (3.82-5.3); RED CELL DISTRIBUTION WIDTH 15.6 % (9.6-15.2)
[2020-10-09 08:51] LABS: ALANINE AMINOTRANSFERASE 53 U/L (12-78); ANION GAP 5 mmol/L (5-15); CALCIUM 8.6 mg/dL (8.5-10.1); CHLORIDE 106 mmol/L (98-107)
[2020-10-09 08:54] LABS: ALKALINE PHOSPHATASE 117 U/L (45-117); BILIRUBIN,TOTAL 0.3 mg/dL (0.2-1.0); CREATININE 0.37 mg/dL (0.55-1.02); TOTAL PROTEIN 7.1 g/dL (6.4-8.2)
[2020-10-09] MEDS: AMPICILLIN/SULBACTAM 3 GM in SODIUM CHLORIDE 0.9% 100 ML IV SCH ×3 (09:18→20:39)
[2020-10-09] MEDS: NICOTINE 14MG/24 HR PATCH.TD24 TD SCH (10:35)
[2020-10-09] MEDS: SILVER SULF. CRM 1% , 25GM TP SCH (10:35)
[2020-10-09] MEDS: OLANZAPINE 10 MG TABLET PO SCH (10:35)
[2020-10-09] MEDS: ACETAMINOPHEN 325 MG TABLET PO PRN (12:05)
[2020-10-09 12:11] VITALS: BP 105/67
[2020-10-09] MEDS: ENOXAPARIN 40 MG/0.4 ML SQ SCH (18:04)
[2020-10-09 19:57] VITALS: BP 110/70
[2020-10-10 01:19] VITALS: BP 106/67
[2020-10-10] MEDS: AMPICILLIN/SULBACTAM 3 GM in SODIUM CHLORIDE 0.9% 100 ML IV SCH ×4 (02:50→20:30)
[2020-10-10 06:56] VITALS: BP 102/64
[2020-10-10] MEDS: SILVER SULF. CRM 1% , 25GM TP SCH (09:00)
[2020-10-10] MEDS: OLANZAPINE 10 MG TABLET PO SCH (09:51)
[2020-10-10] MEDS: NICOTINE 14MG/24 HR PATCH.TD24 TD SCH (09:51)
[2020-10-10 12:32] VITALS: BP 109/66
[2020-10-10] MEDS: ENOXAPARIN 40 MG/0.4 ML SQ SCH (16:43)
[2020-10-10 20:02] VITALS: BP 110/69
[2020-10-11] MEDS: AMPICILLIN/SULBACTAM 3 GM in SODIUM CHLORIDE 0.9% 100 ML IV SCH (02:04)
[2020-10-11 03:48] VITALS: BP 94/58
[2020-10-11 06:58] VITALS: BP 106/68
[2020-10-11 07:21] LABS: CREATININE 0.33 mg/dL (0.55-1.02)
[2020-10-11] MEDS: SILVER SULF. CRM 1% , 25GM TP SCH (09:19)
[2020-10-11] MEDS: OLANZAPINE 10 MG TABLET PO SCH (09:19)
[2020-10-11] MEDS: ERTAPENEM 1 GM in SODIUM CHLORIDE 0.9% 50 ML IV SCH (09:19)
[2020-10-11] MEDS: NICOTINE 14MG/24 HR PATCH.TD24 TD SCH (10:11)
[2020-10-11 13:18] VITALS: BP 114/66
[2020-10-11] MEDS: ENOXAPARIN 40 MG/0.4 ML SQ SCH (15:55)
[2020-10-11 19:06] VITALS: BP 115/76
[2020-10-12 01:33] VITALS: BP 109/72
[2020-10-12 07:55] VITALS: BP 99/62
[2020-10-12] MEDS: OLANZAPINE 10 MG TABLET PO SCH (09:43)
[2020-10-12] MEDS: ERTAPENEM 1 GM in SODIUM CHLORIDE 0.9% 50 ML IV SCH (09:43)
[2020-10-12] MEDS: SILVER SULF. CRM 1% , 25GM TP SCH (09:43)
[2020-10-12] MEDS: NICOTINE 14MG/24 HR PATCH.TD24 TD SCH (09:44)
[2020-10-12 15:20] VITALS: BP 106/67
[2020-10-12] MEDS: ENOXAPARIN 40 MG/0.4 ML SQ SCH (16:06)
[2020-10-12 19:14] VITALS: BP 101/65
[2020-10-13 00:51] VITALS: BP 107/65
[2020-10-13 05:53] LABS: ANION GAP 7 mmol/L (5-15); CALCIUM 8.7 mg/dL (8.5-10.1); CHLORIDE 108 mmol/L (98-107)
[2020-10-13 05:55] LABS: CREATININE 0.39 mg/dL (0.55-1.02)
[2020-10-13 07:37] VITALS: BP 102/66
[2020-10-13] MEDS: ERTAPENEM 1 GM in SODIUM CHLORIDE 0.9% 50 ML IV SCH ×2 (09:04→10:06)
[2020-10-13] MEDS: OLANZAPINE 10 MG TABLET PO SCH (09:05)
[2020-10-13] MEDS: NICOTINE 14MG/24 HR PATCH.TD24 TD SCH (09:05)
[2020-10-13] MEDS: AMPICILLIN/SULBACTAM 3 GM in SODIUM CHLORIDE 0.9% 100 ML IV SCH ×2 (12:48→17:50)
[2020-10-13] MEDS: ACETAMINOPHEN 325 MG TABLET PO PRN (12:48)
[2020-10-13] MEDS: SILVER SULF. CRM 1% , 25GM TP SCH (12:56)
[2020-10-13 15:00] VITALS: BP 114/74
[2020-10-13] MEDS: ENOXAPARIN 40 MG/0.4 ML SQ SCH (15:59)
[2020-10-13 20:00] VITALS: BP 115/77
[2020-10-14] MEDS: AMPICILLIN/SULBACTAM 3 GM in SODIUM CHLORIDE 0.9% 100 ML IV SCH ×4 (00:17→17:30)
[2020-10-14 00:18] VITALS: BP 107/56
[2020-10-14 07:35] VITALS: BP 103/69
[2020-10-14 08:16] LABS: CREATININE 0.44 mg/dL (0.55-1.02)
[2020-10-14] MEDS: OLANZAPINE 10 MG TABLET PO SCH (09:44)
[2020-10-14] MEDS: ACETAMINOPHEN 325 MG TABLET PO PRN ×2 (09:44→15:30)
[2020-10-14] MEDS: NICOTINE 14MG/24 HR PATCH.TD24 TD SCH (09:44)
[2020-10-14] MEDS: SILVER SULF. CRM 1% , 25GM TP SCH (09:45)
[2020-10-14 13:19] VITALS: BP 105/76
[2020-10-14] MEDS: ENOXAPARIN 40 MG/0.4 ML SQ SCH (15:27)
[2020-10-14 19:54] VITALS: BP 110/71
[2020-10-15 00:19] VITALS: BP 105/70
[2020-10-15] MEDS: AMPICILLIN/SULBACTAM 3 GM in SODIUM CHLORIDE 0.9% 100 ML IV SCH ×4 (00:19→18:04)
[2020-10-15 05:22] LABS: ANION GAP 4 mmol/L (5-15); CALCIUM 8.3 mg/dL (8.5-10.1); CHLORIDE 110 mmol/L (98-107)
[2020-10-15 07:51] VITALS: BP 103/67
[2020-10-15] MEDS: OLANZAPINE 10 MG TABLET PO SCH (10:40)
[2020-10-15] MEDS: NICOTINE 14MG/24 HR PATCH.TD24 TD SCH (10:40)
[2020-10-15] MEDS: SILVER SULF. CRM 1% , 25GM TP SCH (10:42)
[2020-10-15 12:26] VITALS: BP 105/66
[2020-10-15] MEDS: ENOXAPARIN 40 MG/0.4 ML SQ SCH (15:15)
[2020-10-15] MEDS: ACETAMINOPHEN 325 MG TABLET PO PRN ×2 (15:15→21:14)
[2020-10-15 19:40] VITALS: BP 105/64
[2020-10-16] MEDS: AMPICILLIN/SULBACTAM 3 GM in SODIUM CHLORIDE 0.9% 100 ML IV SCH ×4 (00:24→17:26)
[2020-10-16 00:57] VITALS: BP 102/58
[2020-10-16 05:34] LABS: BASOPHILS % (AUTO) 1 % (0-1); EOSINOPHILS % (AUTO) 3 % (1-7); LYMPHOCYTES % (AUTO) 41 % (22-44); MEAN CORPUSCULAR HEMOGLOBIN 27.4 pg (27.0-34.8); MEAN CORPUSCULAR HGB CONC 32.5 g/dL (32.4-35.8); MEAN PLATELET VOLUME 7.1 fL (7.4-10.4); MONOCYTES % (AUTO) 11 % (2-9); NEUTROPHILS % (AUTO) 45 % (42-75); PLATELET COUNT 336 x10^3/uL (130-400); RED BLOOD COUNT 3.97 x10^6/uL (3.82-5.3); RED CELL DISTRIBUTION WIDTH 15.3 % (9.6-15.2)
[2020-10-16 05:37] LABS: ANION GAP 4 mmol/L (5-15); CALCIUM 8.1 mg/dL (8.5-10.1); CHLORIDE 111 mmol/L (98-107)
[2020-10-16 05:41] LABS: ALANINE AMINOTRANSFERASE 34 U/L (12-78); ALKALINE PHOSPHATASE 93 U/L (45-117); BILIRUBIN,TOTAL 0.3 mg/dL (0.2-1.0); C-REACTIVE PROTEIN, QUANT 0.12 mg/dL (0.02-0.49); CREATININE 0.43 mg/dL (0.55-1.02); TOTAL PROTEIN 6.5 g/dL (6.4-8.2)
[2020-10-16] MEDS: OLANZAPINE 10 MG TABLET PO SCH (09:35)
[2020-10-16] MEDS: SILVER SULF. CRM 1% , 25GM TP SCH (09:36)
[2020-10-16] MEDS: NICOTINE 14MG/24 HR PATCH.TD24 TD SCH (11:57)
[2020-10-16 13:56] VITALS: BP 104/72
[2020-10-16] MEDS: ACETAMINOPHEN 325 MG TABLET PO PRN ×2 (15:57→22:35)
[2020-10-16] MEDS: ENOXAPARIN 40 MG/0.4 ML SQ SCH (15:58)
[2020-10-16 19:39] VITALS: BP 111/71
[2020-10-17] MEDS: AMPICILLIN/SULBACTAM 3 GM in SODIUM CHLORIDE 0.9% 100 ML IV SCH ×4 (00:10→20:35)
[2020-10-17 00:56] VITALS: BP 110/62
[2020-10-17 05:21] LABS: CREATININE 0.34 mg/dL (0.55-1.02)
[2020-10-17 07:55] VITALS: BP 111/65
[2020-10-17] MEDS: OLANZAPINE 10 MG TABLET PO SCH (09:29)
[2020-10-17] MEDS: NICOTINE 14MG/24 HR PATCH.TD24 TD SCH (09:29)
[2020-10-17] MEDS: SILVER SULF. CRM 1% , 25GM TP SCH (09:30)
[2020-10-17 12:40] VITALS: BP 105/66
[2020-10-17] MEDS: ENOXAPARIN 40 MG/0.4 ML SQ SCH (15:09)
[2020-10-17 18:24] VITALS: BP 114/69
[2020-10-17] MEDS: ACETAMINOPHEN 325 MG TABLET PO PRN (20:35)
[2020-10-18 00:48] VITALS: BP 111/66
[2020-10-18] MEDS: AMPICILLIN/SULBACTAM 3 GM in SODIUM CHLORIDE 0.9% 100 ML IV SCH (03:18)
[2020-10-18 07:27] VITALS: BP 102/64
[2020-10-18] MEDS: OLANZAPINE 10 MG TABLET PO SCH (10:12)
[2020-10-18] MEDS: AMOXICILLIN/CLAV 875-125MG TABLET PO SCH ×2 (10:12→21:27)
[2020-10-18] MEDS: NICOTINE 14MG/24 HR PATCH.TD24 TD SCH (10:12)
[2020-10-18] MEDS: SILVER SULF. CRM 1% , 25GM TP SCH (10:13)
[2020-10-18 13:15] VITALS: BP 112/67
[2020-10-18 18:37] VITALS: BP 16/74
[2020-10-18] MEDS: ENOXAPARIN 40 MG/0.4 ML SQ SCH (21:28)
[2020-10-19 00:17] VITALS: BP 117/72
[2020-10-19 07:01] VITALS: BP 109/75
[2020-10-19] MEDS: SILVER SULF. CRM 1% , 25GM TP SCH (09:00)
[2020-10-19] MEDS: AMOXICILLIN/CLAV 875-125MG TABLET PO SCH (11:23)
[2020-10-19] MEDS: OLANZAPINE 10 MG TABLET PO SCH (11:23)
[2020-10-19] MEDS: NICOTINE 14MG/24 HR PATCH.TD24 TD SCH (11:23)
[2020-10-19] MEDS ORDERED: AMOX1TAB12 PO (12:12)
[2020-10-19] MEDS ORDERED: OLAN10TA69 PO (12:12)
[2020-10-19 13:30] VITALS: BP 121/74
== END 2020-10-19 15:29 | disposition home or self-care (01) | DRG 853 ==
LOC: ED 09-23 00:16 → EDBD 09-23 02:00 → EDIP 09-23 02:00 → MERGE 09-23 02:00 → 4EST 09-23 04:25 → 4WST 09-23 10:51 → 3N 10-12 16:27
PROVIDERS: ADMIT Internal Medicine; ATTEND Internal Medicine
PROC: 0JCJ0ZZ Extirpation of Matter from Right Hand Subcutaneous Tissue and Fascia, Open Approach (ICD-10-PCS; 2020-09-23)
PROC: 0JCD0ZZ Extirpation of Matter from Right Upper Arm Subcutaneous Tissue and Fascia, Open Approach (ICD-10-PCS; 2020-09-23)
PROC: 0JCG0ZZ Extirpation of Matter from Right Lower Arm Subcutaneous Tissue and Fascia, Open Approach (ICD-10-PCS; 2020-09-23)
PROC: 0PBR0ZZ Excision of Right Thumb Phalanx, Open Approach (ICD-10-PCS; 2020-10-08)
PROC: 0X6L0Z3 Detachment at Right Thumb, Low, Open Approach (ICD-10-PCS; principal; 2020-10-08 14:00)
DX: A41.9 Sepsis, unspecified organism (principal); G92 Toxic encephalopathy; M00.9 Pyogenic arthritis, unspecified; L03.113 Cellulitis of right upper limb; E87.1 Hypo-osmolality and hyponatremia; F23 Brief psychotic disorder; M86.8X4 Other osteomyelitis, hand; I10 Essential (primary) hypertension; S61.011A Laceration without foreign body of right thumb without damage to nail, initial encounter; S51.811A Laceration without foreign body of right forearm, initial encounter; S61.419A Laceration without foreign body of unspecified hand, initial encounter; F15.10 Other stimulant abuse, uncomplicated
CPT/HCPCS: 10120; 36415; 80048; 80053; 80074; 80202; 80299; 80307; 80320; 80329; 82550; 82565; 83605; 83735; 84100; 84145; 84443; 84703; 85025; 85651; 86140; 86592; 87040; 87070; 87075; 87205; 87635; 87806; 88305; 88311; 90715; 99152; 99291; G0378; J0295; J0696; J1335; J1650; J2250; J2405; J2543; J2704; J3010; J3370; Q9967; G0475; G0480; J2060; J7030; J7050